=== PATIENT | female | born 1965 | race Caucasian/White ===

== ENCOUNTER 2022-03-30 23:33 | Emergency (ER) | payer BC, OTHER ==
[~2022-03-30] VITALS: Ht 177.8 cm; Wt 108.9 kg
[~2022-03-30 23:33] MED LIST: ALBU17AE26 IH; ALPR0.25 PO
[2022-03-30 23:42] VITALS: BP_SYST 157
[2022-03-31 02:12] LABS: BILIRUBIN,URINE NEGATIVE (NEGATIVE); BLOOD, URINE NEGATIVE (NEGATIVE); CLARITY/URINE CLEAR (CLEAR); COLOR,URINE ORANGE (YELLOW); GLUCOSE,URINE NEGATIVE (NEGATIVE); KETONES,URINE NEGATIVE (NEGATIVE); LEUKOCYTE ESTERASE ,URINE NEGATIVE (NEGATIVE); NITRITE, URINE NEGATIVE (NEGATIVE); PH,URINE 6.5 (5.0-8.0); PROTEIN URINE NEGATIVE (NEGATIVE); UROBILINOGEN,URINE 0.2 (0.2-1.0)
[2022-03-31] MEDS ORDERED: KETOROLAC TROMETHAMINE 60 MG/2 ML VIAL IM ONE (02:30)
[2022-03-31] MEDS ORDERED: MAGNESIUM CITRATE 300 ML ORAL SOLUTION PO ONE (02:45)
[2022-03-31] MEDS ORDERED: predniSONE 20 MG TABLET PO ONE (02:45)
[2022-03-31] MEDS ORDERED: TRAM50TA2 PO ×3 (04:29→04:45)
[2022-03-31] MEDS ORDERED: METH-634 PO ×3 (04:29→04:45)
[2022-03-31] MEDS ORDERED: PRED20TA PO ×3 (04:29→04:45)
[2022-03-31] MEDS ORDERED: DOCU-144 PO ×3 (04:29→04:45)
[2022-03-31] MEDS ORDERED: POLY17PO4 PO ×3 (04:29→04:45)
[2022-03-31] MEDS ORDERED: POLYETHYLENE GLYCOL 3350, 17 GM/ POWD.PACK PO ONE (04:30)
[2022-03-31 04:49] VITALS: BP_SYST 163
== END 2022-03-31 04:49 | disposition home or self-care (01) ==
LOC: SED 23:33
DX: M54.31 Sciatica, right side (principal); M54.50 Low back pain, unspecified; J45.909 Unspecified asthma, uncomplicated; F12.90 Cannabis use, unspecified, uncomplicated; Z88.8 Allergy status to other drugs, medicaments and biological substances; Z79.899 Other long term (current) drug therapy
CPT/HCPCS: 99283; 81003; 72131; 76376; 96372; J7512; J1885